=== PATIENT | female | born 1950 | race Caucasian/White ===

== ENCOUNTER → 2016-06-28 | Outpatient (CLI) | payer OTHER, MEDICARE ==
[~2016-06-28] MED LIST: ACTICIN 5% CREA60 G1; ALBUTEROL INH; ANTACID DOUBLE360 M1 PER TUBE; APAP500 PO; ARTIFICIAL TEA1 EAC1 OP; BUSPAR15 MG; CIPROFLOXACIN500 M1 PO; CLONAZEPAM; CLONAZEPAM 0.50.5 M1 PO; CLONAZEPAM PO; COUMADIN 1MG TAB1 M1 PO; COUMADIN 2 MG TA2 M1 PO; DERMOLATE ANTI-I2 GM; DESYREL50 MG; DESYREL50 MG PO; DIPHENHYDRAMINE25 M3 PO; ENOXAPARIN100 MG/1 M SQ; FLOMAX0.4 MG PO; FLONASE16 GM; GERI-MOX ANTAC355 ML PO; HOME MEDICATION PO; HYDROCODON-ACE1 EAC7 PO; HYDROCODON-ACE1 EACH PO; JANTOVEN6 MG PO; LEVOTHYROXIN0.025 MG PO; LIQUID TEARS OPHTHALMIC; METADATE CD20 MG; METHYLIN 10 MG10 M1 PO; METHYLIN 10 MG10 MG PO; METHYLIN10 M1; MIRALAX255 GM PO; NORCO 5-325 TA1 EAC1 PO; NORCO 5-325 TA1 EACH PO; OMEPRAZOLE20 MG; PATADAY2.5 ML OP; PERCOCET 5-3251 EACH PO; PHENERGAN 25 MG25 M1 PO; PRAVACHOL40 MG; PRAVACHOL40 MG PO; PREDNISONE 10 M10 MG; PROAIR HFA8.5 GM INH; PROVENTIL HFA6.7 G1; PROVENTIL HFA6.7 G1 INH; RITALIN LA20 MG PO; ROBAXIN 750 MG750 M1 PO; SIMVASTATIN40 MG PO; TRIAMCINOLONE A80 G2 TOP; TYLENOL325 MG PO; VENTOLIN HFA INH8 GM; VICODIN 5-5001 EACH PO; XANAX 0.5 MG0.5 M1; ZOCOR40 MG; ZOFRAN 4 MG ORAL4 MG PO; ZOFRAN ODT4 MG PO; ZOLOFT 50 MG TA50 M1 PO; ZPAK PO; ZYRTEC10 M1
== END ==
LOC: MRI 12:20 → RAD 12:20 → MRI 13:48
DX: Z12.31 Encounter for screening mammogram for malignant neoplasm of breast (principal)